=== PATIENT | male | born 1965 | race Caucasian/White ===

== ENCOUNTER 2021-07-12 19:42 | Emergency (ER) | payer BC, SELFPAY ==
[2021-07-12 19:45] VITALS: BP 160/105; PULSE 89; RESP 18; TEMP 36.9; O2SAT 98; BMI 48.8
[2021-07-12 20:04] VITALS: BMI 48.8
--- NOTE | 2021-07-12 21:04 | HMH.EDUTC ---
[facility] Disposition Clinical Impression: Laceration Disposition: Home, Self-Care Condition on Discharge: Good Instructions: How to Care for a Laceration After Repair, DI for Laceration Repair, Amoxicillin and Clavulanic Acid Additional Instructions: Suture instructions: You have required stitches today. Please read the following instructions so you know how to care for them: 1. Keep wound area dry for the first 24 hours. 2 May clean gently with mild soap and water, after 48 hours to prevent crusting over suture knots. 3. You may shower if your provider gives permission but do not take a bath until the skin is healed.. 4. Never leave a wet dressing or Band-Aid on your stitches as this allows bacteria to reach the area and may cause infection. Band-aids can cause the wound to sweat and not recommended to wear for long periods of time Watch for signs of infection: Increasing redness, tenderness or warmth around the suture site Unusual swelling around the site Appearance of pus around each suture or any red streaks Fever If you develop any of the above signs or symptoms of infection, Follow up with Family Physician immediately 5. Suture removal in __10-14__days 6. Return to [facility] or follow up with family doctor for removal. This can be done by any medical provider during regular hours on Monday through Monday, by appointment. Prescriptions: Amoxicillin/Potassium Clav [Augmentin 875-125 Tablet] 1 tab PO Q12H 7 Days #14 tab Prescription Printed Referrals: Jonah Leonard [Primary Care Provider] - Time of Disposition: 21:12 Medical Decision Making - Gold Inquiry Pt receiving controlled substance: No Gold was queried for this patient: No Vital Signs: 07/12/21 19:45 Temperature 98.4 F Temperature Source Oral Pulse Rate [Left Brachial] 89 Respiratory Rate 18 Blood Pressure [Left Arm] 160/105 H Blood Pressure Mean [Left Arm] 123 Blood Pressure Source [Left Arm] Automatic Cuff Blood Pressure Position [Left Arm] Sitting 02 Sat by Pulse Oximetry 98 Oxygen Delivery Method Room Air Orders (Tests/Meds): ED MEDICATIONS Discontinued Medications Generic Name Dose Route Start Last Admin Trade Name Freq PRN Reason Stop Dose Admin Tetanus/Reduced Diphtheria/Acell Pertussis 0.5 ml 07/12/21 20:05 07/12/21 20:10 Tet/Diphth/Pert-Adult 0.5ml Syringe IM 07/12/21 20:06 0.5 ml .ONCE ONE Administration [facility] HPI - General Stated complaint: AO07/12@1800 r upper arm injury Time Seen by Provider: 07/12/21 21:04 Mode of Arrival: Ambulatory Source of Information: Patient Limitations: No Limitations Description of Symptoms (Recalled from Triage Doc. by RN): PATIENT C/O LACERATION TO AREA ABOVE RIGHT ELBOW. REPORT HE GOT AREA HOOKED ON NAIL IN BARN TODAY. HE IS NOT UP TO DATE ON TDAP HEENT Symptoms (Recalled from RN notes): No Resp Symptoms (Recalled from RN notes): No Skin Symptoms (Recalled from RN notes): Yes MS Symptoms (Recalled from RN notes): No Functional Status (Recalled from RN notes): WNL - History of Present Illness Provider Complaint: Patient state that he was working in the barn and fell back against the wall and there was a nail sticking out and it caught him on his right arm just above the elbow and caused a cut States that looked at it and told him it needed stitches so he came in to get it looked at and sutures - Related Data Previous Rx's Medication Instructions Recorded cetirizine 10 mg tablet 10 mg PO ONCE #30 tab 11/11/17 fluticasone propionate 50 1 spray INTRANASAL ONCE #16 g 11/11/17 mcg/actuation nasal spray,suspension Amoxicillin/Potassium Clav 1 tab PO Q12H 7 Days #14 tab 07/12/21 [Augmentin 875-125 Tablet] Allergies Allergy/AdvReac Type Severity Reaction Status Date / Time No Known Allergies Allergy Verified 11/11/17 11:13 - Worker's Comp Is this a Worker's Comp case?: No [facility] History - Hepatitis A Screen Drug use history?: No High risk s
[2021-07-12 21:15] VITALS: BP 160/105; PULSE 89; RESP 18; TEMP 36.9; O2SAT 98
== END 2021-07-12 21:28 | disposition home or self-care (01) ==
PROVIDERS: Emergency Provider Nurse Practitioner; PCP Pediatrics
DX: S41.111A Laceration without foreign body of right upper arm, initial encounter (principal); W45.0XXA Nail entering through skin, initial encounter; Y92.71 Barn as the place of occurrence of the external cause; Z23 Encounter for immunization
CPT/HCPCS: 12002; 90471; 90715; 99202; G0463

== ENCOUNTER 2024-10-17 19:31 | Outpatient (CLI) | payer BC, SELFPAY | END 2024-10-17 23:59 | disposition home or self-care (01) | LOC: LAB.DROPOF 10-18 13:51 | PROVIDERS: PCP Student in an Organized Health Care Education/Training Program; Visit Provider Student in an Organized Health Care Education/Training Program | DX: N39.0 Urinary tract infection, site not specified (principal); B96.20 Unspecified Escherichia coli [E. coli] as the cause of diseases classified elsewhere | CPT/HCPCS: 87086; 87088; 87186 ==